=== PATIENT | female | born 1990 | race Asian ===

== ENCOUNTER 2018-05-17 10:36 | Inpatient (IN) | payer BC, OTHER ==
[~2018-05-17 10:36] MED LIST: Bupivacaine 0.25% HCL 30 ML VIAL ONE; Bupivacaine HCl 0.5%/Epinephrine 1:200,000/PF 30 ml Vial ONE
[2018-05-17] MEDS ORDERED: Docusate 100 MG CAP PO PRN (11:15)
[2018-05-17] MEDS ORDERED: Lidocaine 1% (PF) 30 ML VIAL SC PRN (11:15)
[2018-05-17] MEDS ORDERED: Butorphanol Tartrate 1 MG/ML VIAL SLOW IVP PRN (11:15)
[2018-05-17] MEDS ORDERED: Ibuprofen 800 MG TAB PO PRN (11:15)
[2018-05-17] MEDS ORDERED: Promethazine HCl 25 MG/ML VIAL IM PRN ×2 (11:15→16:12)
[2018-05-17] MEDS ORDERED: NS w/ Oxytocin 10 units 500 ML IV SCH ×2 (11:15)
[2018-05-17] MEDS ORDERED: Ondansetron PF 4 MG/2 ML Vial IVP PRN ×3 (11:15→22:05)
[2018-05-17] MEDS ORDERED: Acetaminophen 500 MG TAB PO PRN (11:15)
[2018-05-17] MEDS ORDERED: NS / Oxytocin 40 units/1000ml 1,000 ML IV PRN (11:15)
[2018-05-17] MEDS ORDERED: HYDROcodone/Acetaminophen 5/325 mg Tablet PO PRN ×2 (11:15)
[2018-05-17] MEDS ORDERED: Diphenoxylate HCl/Atropine Tablet PO PRN ×2 (11:15)
[2018-05-17] MEDS ORDERED: Misoprostol 200 MCG TAB PR PRN (11:15)
[2018-05-17] MEDS: Lactated Ringer's 1,000 ML IV SCH ×2 (11:17→13:05)
[2018-05-17 11:40] VITALS: BMI 29.4
[2018-05-17 11:40] LABS: Hemoglobin 12.5 g/dL (12.0-16.0); Mean Corpuscular HGB CONC 34.5 g/dL (32.0-36.0); Mean Corpuscular Hemoglobin 31.5 pg (27.0-31.0); Mean Corpuscular Volume 91.4 fL (78.0-98.0); Mean Platelet Volume 8.2 fL (7.4-10.4); Platelet Count 198 thou/uL (130-400); RBC Distribution Width 11.8 % (11.5-14.5); Red Blood Cell (RBC) Count 3.96 mill/uL (4.20-5.40); White Blood Cell (WBC) Count 11.7 thou/uL (4.8-10.8)
[2018-05-17] MEDS ORDERED: Fentanyl 4 mcg/Bup 0.1% Cadd 100 ML ONE ×2 (12:09→17:54)
[2018-05-17] MEDS ORDERED: Lidocaine 1.5%/Epinephrine 1:200,000 5 ML AMPUL IJ ONE (12:10)
[2018-05-17 12:21] LABS: HBSAg Index 0.31 S/CO (0-0.99); Hep B Surf Ag Non-Reactive S/CO (NonReactive); Syphilis Antibody Nonreactive (Nonreactive); Syphilis Antibody Index 0.05 S/CO (<1.00 Non-Reactive)
[2018-05-17] MEDS ORDERED: Lidocaine 1% (PF) 30 ML VIAL ONE (13:04)
[2018-05-17] MEDS ORDERED: NS / Oxytocin 40 units/1000ml 1,000 ML ONE ×2 (13:04→21:29)
[2018-05-17] MEDS ORDERED: Eucerin (Mineral Oil/Petrolatum,White) 30 gm Jar TOP PRN (16:12)
[2018-05-17] MEDS ORDERED: diphenhydrAMINE 50 MG/ML VIAL IVP PRN (16:12)
[2018-05-17] MEDS ORDERED: Acetaminophen 325 MG TAB PO PRN (16:12)
[2018-05-17] MEDS ORDERED: Naloxone HCl 0.4 mg/ml Vial IVP PRN ×2 (16:12)
[2018-05-17] MEDS ORDERED: ePHEDrine/0.9% NaCl/PF SYRINGE 50 mg/10 ml SLOW IVP PRN (16:12)
[2018-05-17] MEDS ORDERED: Lactated Ringer's 500 ML IV PRN (16:12)
[2018-05-17] MEDS ORDERED: Communication Order-Pharmacy FS SCH (16:15)
[2018-05-17] MEDS ORDERED: Fentanyl 4 mcg/Bupivacaine 0.1% Cassette 100 ML EPIDURAL SCH (16:15)
[2018-05-17] MEDS ORDERED: Ampicillin/Sulbactam 3 GM in Sodium Chloride 0.9% 100 ML IVPB SCH (19:30)
[2018-05-17] MEDS ORDERED: Bisacodyl 10 MG SUPP PR PRN (22:05)
[2018-05-17] MEDS ORDERED: Milk Of Magnesia 30 ML UDCUP PO PRN (22:05)
[2018-05-17] MEDS ORDERED: Lanolin Ointment 7 GM TUBE TOP PRN (22:05)
[2018-05-17] MEDS ORDERED: Preparation H Ointment 28 GM TUBE PR PRN (22:05)
[2018-05-17] MEDS ORDERED: Benzocaine-Menthol 82.5 ML CAN TOP PRN (22:05)
[2018-05-17] MEDS ORDERED: diphenhydrAMINE 25 MG CAP PO PRN (22:05)
[2018-05-17] MEDS ORDERED: Zolpidem Tartrate 5 MG TAB PO PRN (22:05)
[2018-05-17] MEDS ORDERED: Acetaminophen/Codeine 30-300mg Tablet PO PRN ×2 (22:05)
[2018-05-17] MEDS ORDERED: NS / Oxytocin 40 units/1000ml 1,000 ML IV SCH (22:15)
[2018-05-18] MEDS: Ampicillin/Sulbactam 3 GM in Sodium Chloride 0.9% 100 ML IVPB SCH ×2 (02:12→08:14)
[2018-05-18] MEDS: Ibuprofen 800 MG TAB PO SCH ×3 (05:06→21:25)
[2018-05-18] MEDS: Docusate Calcium (SURFAK) 240 MG CAP PO SCH ×2 (08:14→21:25)
[2018-05-18] MEDS: Ferrous Sulfate 325 MG TAB PO SCH ×2 (08:14→14:33)
[2018-05-18] MEDS ORDERED: Adacel (T-DAP) 0.5 ML SYRINGE IM ONE (09:00)
[2018-05-19] MEDS: Ibuprofen 800 MG TAB PO SCH ×2 (05:21→13:52)
[2018-05-19 08:16] VITALS: BP 98/60; TEMP 98
[2018-05-19] MEDS: Ferrous Sulfate 325 MG TAB PO SCH (08:48)
[2018-05-19] MEDS: Docusate Calcium (SURFAK) 240 MG CAP PO SCH (08:48)
== END 2018-05-19 17:04 | disposition home or self-care (01) | DRG 807 ==
LOC: L&D 10:36 → 3SW 23:32
PROVIDERS: ADMIT Obstetrics & Gynecology; ATTEND Obstetrics & Gynecology
PROC: 10E0XZZ Delivery of Products of Conception, External Approach (ICD-10-PCS; principal; 2018-05-17)
PROC: 0KQM0ZZ Repair Perineum Muscle, Open Approach (ICD-10-PCS; 2018-05-17)
DX: O69.81X0 Labor and delivery complicated by cord around neck, without compression, not applicable or unspecified (principal); Z37.0 Single live birth; O70.1 Second degree perineal laceration during delivery; Z3A.38 38 weeks gestation of pregnancy
CPT/HCPCS: 36415; 51702; 85027; 86780; 86850; 86900; 86901; 87340; J0295; J0670; J2001; J3490; J7050; S0020

== ENCOUNTER 2020-03-17 09:27 | Inpatient (IN) | payer BC ==
[2020-03-17] MEDS ORDERED: Butorphanol Tartrate 1 MG/ML VIAL SLOW IVP PRN (10:16)
[2020-03-17] MEDS ORDERED: HYDROcodone/Acetaminophen 5/325 mg Tablet PO PRN ×4 (10:16→18:12)
[2020-03-17] MEDS ORDERED: Ondansetron PF 4 MG/2 ML Vial IVP PRN ×2 (10:16→18:12)
[2020-03-17] MEDS ORDERED: Ibuprofen 800 MG TAB PO PRN (10:16)
[2020-03-17] MEDS ORDERED: Promethazine HCl 25 MG/ML VIAL IM PRN (10:16)
[2020-03-17] MEDS ORDERED: Misoprostol 200 MCG TAB PR PRN (10:16)
[2020-03-17] MEDS ORDERED: Diphenoxylate HCl/Atropine Tablet PO PRN ×2 (10:16)
[2020-03-17] MEDS ORDERED: Acetaminophen 500 MG TAB PO PRN (10:16)
[2020-03-17] MEDS ORDERED: hydrALAZINE 20 MG/ML VIAL SLOW IVP PRN ×2 (10:16→18:12)
[2020-03-17] MEDS ORDERED: Lidocaine 1% (PF) 30 ML VIAL SC PRN (10:16)
[2020-03-17] MEDS ORDERED: Docusate 100 MG CAP PO PRN (10:16)
[2020-03-17 10:26] LABS: Hemoglobin 12.2 g/dL (12.0-16.0); Mean Corpuscular HGB CONC 33.9 g/dL (32.0-36.0); Mean Corpuscular Hemoglobin 30.5 pg (27.0-31.0); Mean Corpuscular Volume 90.1 fL (78.0-98.0); Mean Platelet Volume 6.9 fL (7.4-10.4); Platelet Count 248 thou/uL (130-400); RBC Distribution Width 11.6 % (11.5-14.5); White Blood Cell (WBC) Count 8.3 thou/uL (4.8-10.8)
[2020-03-17] MEDS ORDERED: Fentanyl 4 mcg/Bup 0.1% Cadd 100 ML ONE (10:27)
[2020-03-17] MEDS ORDERED: NS w/ Oxytocin 30 units 500 ML IV PRN (10:30)
[2020-03-17 11:09] LABS: HBSAg Index 0.21 S/CO (0-0.99); Hep B Surf Ag Non-Reactive S/CO (NonReactive); Syphilis Antibody Nonreactive (Nonreactive); Syphilis Antibody Index 0.04 S/CO (<1.00 Non-Reactive)
[2020-03-17] MEDS: Lactated Ringer's 1,000 ML IV SCH (11:10)
[2020-03-17] MEDS ORDERED: Bupivacaine/Epinephrine 0.5% 10 ML VIAL ONE (11:29)
[2020-03-17] MEDS ORDERED: Preparation H Ointment 28 GM TUBE PR PRN (18:12)
[2020-03-17] MEDS ORDERED: Benzocaine-Menthol 82.5 ML CAN TOP PRN (18:12)
[2020-03-17] MEDS ORDERED: Zolpidem Tartrate 5 MG TAB PO PRN (18:12)
[2020-03-17] MEDS ORDERED: Bisacodyl 10 MG SUPP PR PRN (18:12)
[2020-03-17] MEDS ORDERED: diphenhydrAMINE 25 MG CAP PO PRN (18:12)
[2020-03-17] MEDS ORDERED: Milk Of Magnesia 30 ML UDCUP PO PRN (18:12)
[2020-03-17] MEDS ORDERED: Misoprostol 200 MCG TAB VAG PRN (18:12)
[2020-03-17] MEDS ORDERED: Lanolin Ointment 7 GM TUBE TOP PRN (18:12)
[2020-03-17] MEDS ORDERED: NS / Oxytocin 40 units/1000ml 1,000 ML IV SCH (18:15)
[2020-03-17] MEDS ORDERED: NS w/ Oxytocin 30 units 500 ML IV SCH (18:30)
[2020-03-17 21:49] LABS: SARS-CoV-2 PCR by NAA Not Detected (NotDetected)
[2020-03-17] MEDS ORDERED: Ibuprofen 800 MG TAB PO SCH (22:00)
[2020-03-18] MEDS: Docusate Calcium (SURFAK) 240 MG CAP PO SCH ×2 (01:17→09:58)
[2020-03-18 05:18] LABS: Hemoglobin 11.2 g/dL (12.0-16.0); Mean Corpuscular HGB CONC 35.1 g/dL (32.0-36.0); Mean Corpuscular Hemoglobin 32.3 pg (27.0-31.0); Mean Corpuscular Volume 91.9 fL (78.0-98.0); Mean Platelet Volume 7.2 fL (7.4-10.4); Platelet Count 194 thou/uL (130-400); RBC Distribution Width 11.5 % (11.5-14.5); Red Blood Cell (RBC) Count 3.48 mill/uL (4.20-5.40)
[2020-03-18] MEDS: Ferrous Sulfate 325 MG TAB PO SCH ×2 (08:07→16:50)
[2020-03-18] MEDS: Lactated Ringer's 1,000 ML IV SCH (08:07)
[2020-03-18] MEDS ORDERED: Adacel (T-DAP) 0.5 ML SYRINGE IM ONE (09:00)
[2020-03-18] MEDS ORDERED: Prenatal Vitamin 1 TAB PO SCH (09:00)
[2020-03-18] MEDS: Ibuprofen 800 MG TAB PO SCH ×2 (09:58→16:45)
[2020-03-18 20:02] VITALS: BP 116/71; TEMP 97.8
== END 2020-03-18 20:55 | disposition home or self-care (01) | DRG 807 ==
LOC: L&D 09:27 → 3SW 21:59
PROVIDERS: ADMIT Obstetrics & Gynecology; ATTEND Obstetrics & Gynecology
PROC: 10E0XZZ Delivery of Products of Conception, External Approach (ICD-10-PCS; principal; 2020-03-17)
DX: O75.89 Other specified complications of labor and delivery (principal); Z37.0 Single live birth; Z3A.38 38 weeks gestation of pregnancy; H40.10X0 Unspecified open-angle glaucoma, stage unspecified; Z20.822 Contact with and (suspected) exposure to COVID-19; Z79.899 Other long term (current) drug therapy; Z98.49 Cataract extraction status, unspecified eye
CPT/HCPCS: 36415; 51702; 85027; 86780; 86850; 86900; 86901; 87340; 87635; J2590; J3490; U0003; U0005